=== PATIENT | male | born 1960 | race Two or more races ===

== ENCOUNTER 2025-02-11 08:59 | Outpatient (RCR) | payer MEDICARE, SELFPAY ==
--- NOTE | 2025-02-11 12:55 | CTCCONSULT_ITS ---
Patient: BRANDON MATHEWS : 1960 MR#: [id number] Page 2 of 4 CONSULTATION NOTE DATE OF CONSULTATION: 02/11/2025 NAME: BRANDON MATHEWS ACCOUNT: [id number] : 1960 AGE: 64 REFERRING PHYSICIAN: Irwin Espitia MD PRIMARY PHYSICIAN: REASON FOR VISIT: History of colon cancer ONCOLOGY HISTORY: DIAGNOSIS: Colon adenocarcinoma DATE OF DIAGNOSIS: 08/13/2020 STAGE/TNM: 3.2 cm ulcerated area adenocarcinoma status post AP resection proximal margin negative by 18 cm distal margin negative by 5 cm mesorectal margin negative by 1.5 cm 19 small benign lymph nodes identified tumor progression score 0 no visible cancer cells identified, TREATMENT HISTORY: Care?Plan Start?Date Cycle Day Intent Rectal adenocarcinoma s/p chemoradiation HISTORY OF PRESENT ILLNESS: 64-year-old male with a history of rectal adenocarcinoma. Patient underwent chemoradiation followed by surgery. Patient have colostomy bag and have hernia associated with it. Patient have not had a colonoscopy since his treatment. Patient have not had any follow-up with colorectal surgery. OTHER MEDICAL HISTORY/CONDITIONS: COLON CA DX 01/2020, HTN, ASTHMA, HYPERLIPIDIMIA, ABDOMINAL HERNIA COLOSTOMY 08/2020, RT EYE SURGERY @11YR OLD,LT ARM SURGERY @21 YRS OLD FAMILY HISTORY: Father:?DENIES Mother:?BR?CA?60YR Sibling:?SISTER?BR?CA?40YR Children:?DENIES Cancer?History:?COLON?CA SOCIAL HISTORY: Occupational?History:?DISABLED Education?Level:?Completed High School Marital?Status:? Tobacco?Use?Years:?10 Tobacco?Use:?1PACK?A?WEEK,?FORMER ETOH Use:?2 CANS A BEER X 3-4 WEEK X2 YRS, DOES NOT CURRENTLY DRINK Social History Note:?HOMELESS, LIVES WITH FRIEND MEDICATIONS: 1. busPIRone - 15 mg 1 tab Twice a Day 2. chlorthalidone - 50 mg 1 tab In the morning 3. clindamycin HCl - 300 mg Capsule As directed 4. furosemide - 40 mg 1 tab Twice a Day 5. gabapentin - 100 mg 1 Capsule Three times a day 6. potassium - 25 mEq 1 tab Daily 7. pravastatin - 40 mg 1 tab Daily 8. primidone - 50 mg 1 tab Daily 9. tamsulosin - 0.4 mg 1 Capsule Daily 10. traMADol - 50 mg 1 tab As directed 11. TylenoL - 650 mg 1 tab As directed Medications Last Reconciled by Vidya Joe MA on 02/11/2025 ALLERGIES: No Known Drug Allergies REVIEW OF SYSTEMS: A complete 14-point review of systems was performed and is negative except as noted in interval history. PHYSICAL EXAMINATION: VITAL SIGNS: Temperature?98, B/P?121/77, Height?70?inches, Oxygen?Saturation?95% Weight?198?lbs PAIN: 6 - Severe pain ECOG Performance Status: 3 - Symptomatic; limited self-care; spends >50% of time in bed, not bedridden GENERAL APPEARANCE: Appears disheveled .poorly kept HEENT: Normocephalic, no temporal wasting, normal conjunctiva, no scleral icterus, normal hearing, lips without lesions, neck normal range of motion. CARDIOVASCULAR: Not assessed. PULMONARY: Normal respiratory effort, no respiratory distress or use of accessory muscles, speaking in full sentences, no tachypnea. EXTREMITIES: No pedal edema or cyanosis. SKIN: Normal skin appearance. NEUROLOGIC: Alert and oriented x4. PSHYCHIATRIC: Appropriate affect, mood normal, behavior normal, intact thought and speech. Abdomen showed hernia at the site of colostomy bag almost a foot wall size LABORATORY DATA: I have personally reviewed and interpreted each of the patient?s relevant lab tests, abnormal findings are below: Date ASSESSMENT/PLAN: History of rectal adenocarcinoma Patient had chemoRT AP resection after the treatment and was found to have complete response with no viable cancer Here for continued T of care Will get CT scan Refer to general surgery for reversal of colostomy bag and hernia repair Colonoscopy ordered nida and [facility] ambulatory services representative RTC in 1 to 2 months ORDERS: Order # Description [id number] [facility] [id number] CT Scan + Chest + Abdomen and Pelvis + With W/O Contrast [id number] Follow Up 4 Week [id number] Vitamin B-12 + Folic Acid; Serum + Ferritin + Iron Panel [id number] RETURN TO CLINIC: I reviewed the diagnosis, prognosis, and recommended treatment/procedure options with the patient (and/or their legal packaging sales representative), including the potential benefits, risks, side effects and alternative therapies. We also discussed the option of no treatment and the possibility of clinical trial participation, if applicable. All questions were addressed, and they demonstrated understanding. They provided informed consent to proceed with the proposed plan of care. BILLING AND COMPLIANCE: I reviewed external records from providers outside my specialty as summarized above. I spent a total of 50 minutes on this patient?s care on the day of their visit excluding time spent related to any billed procedures. This time includes time spent with the patient as well as time spent documenting in the medical record, reviewing patients records and tests, obtaining history, placing orders, communicating with other healthcare professionals, counseling the patient, family or caregiver, and/or care coordination for the diagnoses above. Electronically Signed by: Mario Duque MD T: 12:53 PM CC: PCP: Referring: Irwin Espitia This document was completed utilizing speech recognition software. Grammatical errors, random word insertions, pronoun errors, and incomplete sentences are an occasional consequence of this system due to software limitations, ambient noise, and hardware issues. Any formal questions or concerns about the content, text or information contained within the body of this dictation should be directly addressed to the provider for clarification.
== END 2025-02-26 23:59 | disposition home or self-care (01) ==
LOC: SCTC 08:59
PROVIDERS: PCP Nurse Practitioner Family; Referring Provider Nurse Practitioner Family; Visit Provider Internal Medicine Hematology & Oncology
DX: Z08 Encounter for follow-up examination after completed treatment for malignant neoplasm (principal); Z85.048 Personal history of other malignant neoplasm of rectum, rectosigmoid junction, and anus
CPT/HCPCS: 99213; G0463

== ENCOUNTER → 2025-03-21 | Outpatient (CLI) | payer MEDICARE, SELFPAY ==
[2025-03-20 11:52] LABS: Alanine Aminotransferase 40 U/L (10-49); Albumin, Serum 4.2 gm/dL (3.4-4.8); Albumin/Globulin Ratio 2.0 (1.2-2.2); Alkaline Phosphatase 59 U/L (46-116); Anion Gap 9 (7-16); Aspartate Amino Transferase 32 U/L (0-34); BUN/Creatinine Ratio 13 Ratio (12-20); Bilirubin,Total 0.6 mg/dL (0.3-1.2); Blood Urea Nitrogen 10 mg/dL (9-23); Calcium 9.0 mg/dL (8.3-10.6); Calcium (Corrected) 9.0 mg/dL (8.5-10.1); Carbon Dioxide 30.1 mMol/L (20.0-31.0); Chloride 103 mMol/L (98-107); Creatinine (Component) 0.8 mg/dL (0.6-1.3); Globulin 2.1 gm/dL (2.3-3.5); Glucose 113 mg/dL (74-106); Osmolality,Calculated 283 (275-295); Potassium 3.9 mMol/L (3.4-5.1); Sodium 142 mMol/L (136-145); Total Protein 6.3 gm/dL (5.7-8.2); eGFR > 60 See Note
--- NOTE | 2025-03-21 15:00 | XR_ITS ---
Examination: CT chest with intravenous contrast CT abdomen with intravenous contrast CT pelvis with intravenous contrast CT chest without intravenous contrast CT abdomen without intravenous contrast CT pelvis without intravenous contrast 2-D sagittal reconstructions. 2-D coronal reconstructions. 3-D reconstructions. Date and time of exam: March 21, 2025, 1603 hours, no priors INDICATIONS: Diagnosis personal history of other malignant neoplasm of the rectum, rectosigmoid junction, anus, staging CTDI: vol (mGy): 14.4 DLP: (mGycm): 1213 Technique: Multiple 1.25 mm axial sections of the chest abdomen pelvis pre and post intravenous administration 60 cc Isovue-370 have been obtained. 2-D sagittal and coronal reconstructions have been obtained. 3-D reconstructions have been obtained. Low dose protocols were performed. One or more of the following dose reduction techniques were used; automated exposure control, adjustment of the mA and/or KV according to patient size, use of iterative reconstruction technique. Findings: No thoracic aortic aneurysmal dilatation No pulmonary artery filling defects No paratracheal or tracheobronchial or bronchopulmonary adenopathy 7 mm pulmonary nodule right midlung image 193 2 mm pulmonary nodule anterior segment right upper lobe image 210 No pneumonia or pulmonary edema No liver splenic lesion No gallstones No pancreatic mass Normal adrenal glands No renal or ureteral calculi, no hydronephrosis 6 mm left lateral para-aortic lymph node image 192 9 mm left common iliac lymph node axial image 235 7 mm right common iliac lymph node axial image 242 Bilateral subcentimeter external iliac lymph nodes, the largest on the left side 7 mm Left common femoral lymph node 10 mm No perirectal lymphadenopathy Mild presacral soft tissue density, axial image 285, measuring 9 mm in thickness Urinary bladder intact Fat-containing inguinal hernias Anterior pelvic wall defect containing colon no incarcerated bowel Moderate osteopenia IMPRESSION: Noncalcified pulmonary nodules as above, recommend 6-month follow-up CT chest without contrast Abdominal pelvic lymphadenopathy as above, consider PET CT scan follow-up
== END | disposition home or self-care (01) ==
LOC: SCAT 13:58
PROVIDERS: Referring Provider Internal Medicine Hematology & Oncology; Visit Provider Internal Medicine Hematology & Oncology
DX: R91.8 Other nonspecific abnormal finding of lung field (principal); R59.0 Localized enlarged lymph nodes; Z93.3 Colostomy status; Z85.048 Personal history of other malignant neoplasm of rectum, rectosigmoid junction, and anus; Z85.038 Personal history of other malignant neoplasm of large intestine
CPT/HCPCS: 36415; 71270; 74178; 80053; A4649; Q9967

== ENCOUNTER 2025-03-27 15:12 | Outpatient (RCR) | payer MEDICARE, SELFPAY ==
--- NOTE | 2025-04-09 23:07 | CTCFLWUP_ITS ---
Patient: BRANDON MATHEWS : 1960 Page 2 of 3 FOLLOW UP NOTE DATE OF SERVICE: 03/27/2025 NAME: BRANDON MATHEWS ACCOUNT: [id number] : 1960 AGE: 65 INTERVAL HISTORY: ONCOLOGY HISTORY:?[facility] Oncology Hx? DIAGNOSIS: Colon adenocarcinoma DATE OF DIAGNOSIS: 08/13/2020 STAGE/TNM: 3.2 cm ulcerated area adenocarcinoma status post AP resection proximal margin negative by 18 cm distal margin negative by 5 cm mesorectal margin negative by 1.5 cm 19 small benign lymph nodes identified tumor progression score 0 no visible cancer cells identified, TREATMENT HISTORY: Care?Plan Start?Date Cycle Day Intent HISTORY OF PRESENT ILLNESS: 65-year-old male with a history of rectal adenocarcinoma. Patient underwent chemoradiation followed by surgery. Patient have colostomy bag and have hernia associated with it. Patient have not had a colonoscopy since his treatment. Patient have not had any follow-up with colorectal surgery. OTHER MEDICAL HISTORY/CONDITIONS: COLON CA DX 01/2020, HTN, ASTHMA, HYPERLIPIDIMIA, ABDOMINAL HERNIA COLOSTOMY 08/2020, RT EYE SURGERY @11YR OLD,LT ARM SURGERY @21 YRS OLD FAMILY HISTORY: Father:?DENIES Mother:?BR?CA?60YR Sibling:?SISTER?BR?CA?40YR Children:?DENIES Cancer?History:?COLON?CA SOCIAL HISTORY: Occupational?History:?DISABLED Education?Level:?Completed High School Marital?Status:? Tobacco?Use?Years:?10 Tobacco?Use:?1PACK?A?WEEK,?FORMER ETOH Use:?2 CANS A BEER X 3-4 WEEK X2 YRS, DOES NOT CURRENTLY DRINK Social History Note:?HOMELESS, LIVES WITH FRIEND MEDICATIONS: 1. busPIRone - 15 mg 1 tab Twice a Day 2. chlorthalidone - 50 mg 1 tab In the morning 3. clindamycin HCl - 300 mg Capsule As directed 4. furosemide - 40 mg 1 tab Twice a Day 5. gabapentin - 100 mg 1 Capsule Three times a day 6. potassium - 25 mEq 1 tab Daily 7. pravastatin - 40 mg 1 tab Daily 8. primidone - 50 mg 1 tab Daily 9. tamsulosin - 0.4 mg 1 Capsule Daily 10. traMADol - 50 mg 1 tab As directed 11. TylenoL - 650 mg 1 tab As directed?Pal[facility]ra Meds? Medications Last Reconciled by Vidya Wilson MD on 03/27/2025 ALLERGIES: No Known Drug Allergies REVIEW OF SYSTEMS: A complete 14-point review of systems was performed and is negative except as noted in interval history. PHYSICAL EXAMINATION:?CloneBlock PE? VITAL SIGNS: Temperature?97.6, B/P?132/75, Oxygen?Saturation?97% Weight?200?lbs PAIN: 0 - No pain ECOG Performance Status: 2 - Symptomatic; ambulatory; capable of self-care; >50% of waking hrs. not in bed GENERAL APPEARANCE: Appears disheveled .poorly kept HEENT: Normocephalic, no temporal wasting, normal conjunctiva, no scleral icterus, normal hearing, lips without lesions, neck normal range of motion. CARDIOVASCULAR: Not assessed. PULMONARY: Normal respiratory effort, no respiratory distress or use of accessory muscles, speaking in full sentences, no tachypnea. EXTREMITIES: No pedal edema or cyanosis. SKIN: Normal skin appearance. NEUROLOGIC: Alert and oriented x4. PSHYCHIATRIC: Appropriate affect, mood normal, behavior normal, intact thought and speech. Abdomen showed hernia at the site of colostomy bag LABORATORY DATA: I have personally reviewed and interpreted each of the patient?s relevant lab tests, abnormal findings are below: Date 03/20/25 ??GLUCOSE,RANDOM?(mg/dL) 113?H ??BLOOD?UREA?NITROGEN?(mg/dL) 10 ??CREATININE?(mg/dL) 0.80 ??SODIUM?(mmol/L) 142 ??POTASSIUM?(mmol/L) 3.9 ??CHLORIDE?(mmol/L) 103 ??CrCl?(CandG)?(ml/min) 118.50 ??AST/SGOT?(Unit/L) 32 ??ALT/SGPT?(Unit/L) 40 ??ALKALINE?PHOSPHATASE?(Unit/L) 59 ??BILIRUBIN,?TOTAL?(mg/dL) 0.6 ??PROTEIN?TOTAL?(gm/dl) 6.3 ??ALBUMIN,?SERUM?(gm/dl) 4.2 ??GLOBULIN?(gm/dl) 2.1?L ??ALBUMIN/GLOBULIN?RATIO 2.0 ??CALCIUM,?SERUM?(mg/dL) 9.0 ??CALCIUM?SERUM?(CORRECTED)?(mg/dL) 9.0 ASSESSMENT/PLAN:?Ra Duque Assessment/Plan? History of rectal adenocarcinoma Patient had chemoRT AP resection after the treatment and was found to have complete response with no viable cancer Here for continued T of care Will get CT scan Refer to general surgery for reversal of colostomy bag and hernia repair Colonoscopy ordered naterra and [facility] school services officer RTC in 1 to 2 months ORDERS: Order # Description [id number] Comprehensive Metabolic Panel - 12 [id number] Comprehensive Metabolic Panel - 12 + Uric Acid, Serum + CEA [id number] MD Follow Up 4 Week [id number] PET/CT of Skull to mid-thigh for Restaging RETURN TO CLINIC: I reviewed the diagnosis, prognosis, and recommended treatment/procedure options with the patient (and/or their legal loss prevention representative), including the potential benefits, risks, side effects and alternative therapies. We also discussed the option of no treatment and the possibility of clinical trial participation, if applicable. All questions were addressed, and they demonstrated understanding. They provided informed consent to proceed with the proposed plan of care. BILLING AND COMPLIANCE: I reviewed external records from providers outside my specialty as summarized above. I spent a total of 50 minutes on this patient?s care on the day of their visit excluding time spent related to any billed procedures. This time includes time spent with the patient as well as time spent documenting in the medical record, reviewing patients records and tests, obtaining history, placing orders, communicating with other healthcare professionals, counseling the patient, family or caregiver, and/or care coordination for the diagnoses above. Electronically Signed by: Mario Duque MD T: 11:05 PM CC: PCP: Referring: Huber Garcia This document was completed utilizing speech recognition software. Grammatical errors, random word insertions, pronoun errors, and incomplete sentences are an occasional consequence of this system due to software limitations, ambient noise, and hardware issues. Any formal questions or concerns about the content, text or information contained within the body of this dictation should be directly addressed to the provider for clarification.
== END 2025-03-29 23:59 | disposition home or self-care (01) ==
LOC: SCTC 15:12
PROVIDERS: PCP Family Medicine; Referring Provider Family Medicine; Visit Provider Internal Medicine Hematology & Oncology
DX: Z08 Encounter for follow-up examination after completed treatment for malignant neoplasm (principal); Z85.048 Personal history of other malignant neoplasm of rectum, rectosigmoid junction, and anus; Z92.21 Personal history of antineoplastic chemotherapy; Z92.3 Personal history of irradiation; Z93.3 Colostomy status
CPT/HCPCS: 99212; G0463

== ENCOUNTER 2025-04-02 14:04 | Outpatient (RCR) | payer MEDICARE, SELFPAY | END 2025-04-28 23:59 | disposition home or self-care (01) | LOC: SCTC 14:04 | PROVIDERS: PCP Family Medicine; Referring Provider Family Medicine; Visit Provider Internal Medicine Hematology & Oncology | DX: Z85.048 Personal history of other malignant neoplasm of rectum, rectosigmoid junction, and anus (principal); Z92.3 Personal history of irradiation; Z92.21 Personal history of antineoplastic chemotherapy | CPT/HCPCS: 99424; 99425 ==

== ENCOUNTER → 2025-04-02 | Outpatient (CLI) | payer MEDICARE, SELFPAY ==
--- NOTE | 2025-04-02 16:12 | XR_ITS ---
Examination: Duplex scan of the lower extremity, unilateral left complete Date and time of exam: April 02, 2025, 1639 hours INDICATION: Left leg swelling and pain beginning 3 months ago Technique: Duplex scan of the extremity veins using B-mode/grayscale imaging and Doppler spectral analysis and color flow Attention is directed to internal echogenicity, compression and augmentation involving these veins, color flow assessment, spectral analysis Findings: Major deep venous structures in the extremity demonstrate normal course and caliber. There is no evidence of deep vein thrombosis. Normal color flow and spectral analysis Impression: Negative for DVT..
== END | disposition home or self-care (01) ==
PROVIDERS: PCP Nurse Practitioner Family; Referring Provider Internal Medicine Hematology & Oncology; Visit Provider Internal Medicine Hematology & Oncology
DX: M79.605 Pain in left leg (principal); Z85.038 Personal history of other malignant neoplasm of large intestine
CPT/HCPCS: 93971

== ENCOUNTER 2025-04-30 10:14 | Outpatient (RCR) | payer MEDICARE, SELFPAY ==
--- NOTE | 2025-04-30 11:25 | CTCFLWUP_ITS ---
Patient: BRANDON MATHEWS : 1960 Page 2 of 4 FOLLOW UP NOTE DATE OF SERVICE: 04/30/2025 NAME: BRANDON MATHEWS ACCOUNT: [id number] : 1960 AGE: 65 INTERVAL HISTORY: Patient is doing better . still have pain in her toes. He is trying to make appointment with her surgeon at [facility]. ONCOLOGY HISTORY: DIAGNOSIS: Rectal adenocarcinoma DATE OF DIAGNOSIS: 08/13/2020 STAGE/TNM: 3.2 cm ulcerated area adenocarcinoma status post AP resection proximal margin negative by 18 cm distal margin negative by 5 cm mesorectal margin negative by 1.5 cm 19 small benign lymph nodes identified tumor progression score 0 no visible cancer cells identified, TREATMENT HISTORY: Care?Plan Start?Date Cycle Day Intent HISTORY OF PRESENT ILLNESS: 65-year-old male with a history of rectal adenocarcinoma. Patient underwent chemoradiation followed by surgery. Patient have colostomy bag and have hernia associated with it. Patient have not had a colonoscopy since his treatment. Patient have not had any follow-up with colorectal surgery. OTHER MEDICAL HISTORY/CONDITIONS: COLON CA DX 01/2020, HTN, ASTHMA, HYPERLIPIDIMIA, ABDOMINAL HERNIA COLOSTOMY 08/2020, RT EYE SURGERY @11YR OLD,LT ARM SURGERY @21 YRS OLD FAMILY HISTORY: Father:?DENIES Mother:?BR?CA?60YR Sibling:?SISTER?BR?CA?40YR Children:?DENIES Cancer?History:?COLON?CA SOCIAL HISTORY: Occupational?History:?DISABLED Education?Level:?Completed High School Marital?Status:? Tobacco?Use?Years:?10 Tobacco?Use:?1PACK?A?WEEK,?FORMER ETOH Use:?2 CANS A BEER X 3-4 WEEK X2 YRS, DOES NOT CURRENTLY DRINK Social History Note:?HOMELESS, LIVES WITH FRIEND MEDICATIONS: 1. busPIRone - 15 mg 1 tab Twice a Day 2. chlorthalidone - 50 mg 1 tab In the morning 3. clindamycin HCl - 300 mg Capsule As directed 4. furosemide - 40 mg 1 tab Twice a Day 5. gabapentin - 100 mg 1 Capsule Three times a day 6. potassium - 25 mEq 1 tab Daily 7. pravastatin - 40 mg 1 tab Daily 8. primidone - 50 mg 1 tab Daily 9. tamsulosin - 0.4 mg 1 Capsule Daily 10. traMADol - 50 mg 1 tab As directed 11. TylenoL - 650 mg 1 tab As directed Medications Last Reconciled by Vidya Wilson MD on 03/27/2025 ALLERGIES: No Known Drug Allergies REVIEW OF SYSTEMS: A complete 14-point review of systems was performed and is negative except as noted in interval history. PHYSICAL EXAMINATION: VITAL SIGNS: PAIN: 6 - Severe pain ECOG Performance Status: 1 - Symptomatic; ambulatory; restricted in strenuous activity GENERAL APPEARANCE: Appears disheveled .poorly kept HEENT: Normocephalic, no temporal wasting, normal conjunctiva, no scleral icterus, normal hearing, lips without lesions, neck normal range of motion. CARDIOVASCULAR: Not assessed. PULMONARY: Normal respiratory effort, no respiratory distress or use of accessory muscles, speaking in full sentences, no tachypnea. EXTREMITIES: No pedal edema or cyanosis. SKIN: Normal skin appearance. NEUROLOGIC: Alert and oriented x4. PSHYCHIATRIC: Appropriate affect, mood normal, behavior normal, intact thought and speech. Abdomen showed hernia at the site of colostomy bag LABORATORY DATA: I have personally reviewed and interpreted each of the patient?s relevant lab tests, abnormal findings are below: Date 03/20/25 ??GLUCOSE,RANDOM?(mg/dL) 113?H ??BLOOD?UREA?NITROGEN?(mg/dL) 10 ??CREATININE?(mg/dL) 0.80 ??SODIUM?(mmol/L) 142 ??POTASSIUM?(mmol/L) 3.9 ??CHLORIDE?(mmol/L) 103 ??CrCl?(CandG)?(ml/min) 118.50 ??AST/SGOT?(Unit/L) 32 ??ALT/SGPT?(Unit/L) 40 ??ALKALINE?PHOSPHATASE?(Unit/L) 59 ??BILIRUBIN,?TOTAL?(mg/dL) 0.6 ??PROTEIN?TOTAL?(gm/dl) 6.3 ??ALBUMIN,?SERUM?(gm/dl) 4.2 ??GLOBULIN?(gm/dl) 2.1?L ??ALBUMIN/GLOBULIN?RATIO 2.0 ??CALCIUM,?SERUM?(mg/dL) 9.0 ??CALCIUM?SERUM?(CORRECTED)?(mg/dL) 9.0 ASSESSMENT/PLAN: History of rectal adenocarcinoma Patient had chemoRT AP resection after the treatment and was found to have complete response with no viable cancer Here for continued T of care Ct scna is negative Refer to general surgery at [facility] for reversal of colostomy bag and hernia repair Colonoscopy ordered natmikki and [facility] director financial services RTCin [address] scan ORDERS: Order # Description [id number] Comprehensive Metabolic Panel - 12 + CEA [id number] Follow Up [id number] Scan + Chest + Abdomen and Pelvis + With Contrast RETURN TO CLINIC: I reviewed the diagnosis, prognosis, and recommended treatment/procedure options with the patient (and/or their legal escrow representative), including the potential benefits, risks, side effects and alternative therapies. We also discussed the option of no treatment and the possibility of clinical trial participation, if applicable. All questions were addressed, and they demonstrated understanding. They provided informed consent to proceed with the proposed plan of care. BILLING AND COMPLIANCE: I reviewed external records from providers outside my specialty as summarized above. I spent a total of 50 minutes on this patient?s care on the day of their visit excluding time spent related to any billed procedures. This time includes time spent with the patient as well as time spent documenting in the medical record, reviewing patients records and tests, obtaining history, placing orders, communicating with other healthcare professionals, counseling the patient, family or caregiver, and/or care coordination for the diagnoses above. Electronically Signed by: Mario Duque MD T: 11:22 AM CC: PCP: Referring: Huber Garcia This document was completed utilizing speech recognition software. Grammatical errors, random word insertions, pronoun errors, and incomplete sentences are an occasional consequence of this system due to software limitations, ambient noise, and hardware issues. Any formal questions or concerns about the content, text or information contained within the body of this dictation should be directly addressed to the provider for clarification.
== END 2025-05-29 23:59 | disposition home or self-care (01) ==
LOC: SCTC 10:14
PROVIDERS: PCP Family Medicine; Referring Provider Family Medicine; Visit Provider Internal Medicine Hematology & Oncology
DX: Z08 Encounter for follow-up examination after completed treatment for malignant neoplasm (principal); Z85.048 Personal history of other malignant neoplasm of rectum, rectosigmoid junction, and anus
CPT/HCPCS: 99211; 99212; G0463

== ENCOUNTER 2025-05-26 11:11 | Emergency (ER) | payer MEDICARE, SELFPAY ==
[2025-05-26 12:32] VITALS: BP 156/89; PULSE 73; RESP 16; TEMP 36.6; O2SAT 98
[2025-05-26 12:33] VITALS: BMI 28.4
--- NOTE | 2025-05-26 12:37 | XR_ITS ---
Examination: Venous duplex lower extremity sonogram, bilateral. Date and time of exam: May 26, 2025, 1406 hours INDICATIONS: Bilateral leg swelling beginning 1 month ago Technique: Multiple sonographic images of the deep venous system have been obtained. B-mode/2-D grayscale imaging of vascular structures and Doppler spectral analysis (waveforms) and color performed Both legs are examined. Findings: Deep venous systems do not demonstrate abnormal echogenicity. All visualized deep veins exhibit compressibility. All visualized deep veins exhibit augmentation. Impression: Negative for deep vein thrombosis
--- NOTE | 2025-05-26 12:38 | PD.EDLOWEX ---
Lower Extremity Injury RME/HPI General Chief Complaint: Extremity Injury, Lower Stated Complaint: BURNING SENSATION TO BILATERAL TOES X1MO Time Seen by Provider: 05/26/25 11:43 Arrival date/time: 05/26/25 11:11 69-year-old male patient with significant history of congestive heart failure, came in for evaluation regarding bilateral lower leg swelling. This been ongoing for the last 1 month that is worsening bilateral lower leg swelling associated with burning severity moderate. Patient denies any redness. Denies any other complaints. Patient told me that he is taking water pill. No fever no shortness of breath no dyspnea on exertion. Denies any trauma to the legs. Related Data Allergies Allergy/AdvReac Type Severity Reaction Status Date / Time No Known Allergies Allergy Verified 05/26/25 11:17 Review of Systems Review of Systems Narrative Review of Systems: Review of system reviewed and within normal limits except mentioned in HPI ED Exam Narrative Physical exam: VITAL SIGNS: Reviewed. GENERAL APPEARANCE: Alert and interactive, follows commands, no acute distress, HEAD AND FACE: Non-traumatic. ENT: PERRL, pink conjunctivitis, eyelid no trauma, Mucous membrane moist. NECK: Supple, nontender, no nuchal rigidity. CHEST: No tenderness, no crepitus, no paradoxical movement, no retractions. LUNGS: Clear, well ventilated, symmetric, no rales, no wheezing, no ronchi, no stridor, good breath sounds bilaterally. HEART: Regular rate, regular rhythm, no murmur, no gallops. ABDOMEN: Soft, positive bowel sounds, nondistended, no guarding, nontender, no rebound, no masses, RECTAL: Deferred. GENITAL: Deferred. NEUROLOGICAL: Gross motor function intact sensory function intact, Appropriate for age. MUSCULOSKELETAL: low back nontender, full range of motion. EXTREMITIES: Bilateral lower extremity +2 edema, no redness pulses palpable, no redness with tenderness on the foot, no cyanosis, full range of motion. SKIN: Color pink, dry, no rash, no lacerations, no abrasions, no contusions. LYMPHATICS: Deferred. Course Quality Measures none Orders Category Date Time Status US venous doppler LE BI Stat Exams 05/26/25 12:37 Completed Furosemide [Lasix] Med 05/26/25 17:09 Once 40 mg PO X1 ONE Ketorolac Inj [Toradol Inj] Med 05/26/25 12:38 Discontinued 30 mg IM X1 ONE Vital Signs Vital signs: Vital Signs Temperature 97.9 F 05/26/25 12:32 Pulse Rate 73 05/26/25 12:32 Respiratory Rate 16 05/26/25 12:32 Blood Pressure 156/89 H 05/26/25 12:32 Pulse Oximetry (%) 98 05/26/25 12:32 Oxygen Delivery Method Room Air 05/26/25 12:32 Extremity Injury, Lower MDM Narrative MDM Narrative:: 69-year-old male patient with significant history of congestive heart failure, came in for evaluation regarding bilateral lower leg swelling. This been ongoing for the last 1 month that is worsening bilateral lower leg swelling associated with burning severity moderate. Patient denies any redness. Denies any other complaints. Patient told me that he is taking water pill. No fever no shortness of breath no dyspnea on exertion. Denies any trauma to the legs. Ultrasound of bilateral lower extremity came back with no DVT. Patient was given Lasix in the ED. Patient was advised to elevate legs and wear compression stocking the morning and remove it during the night. Patient was advised to continue taking water pill. Patient data External records reviewed:: None Clinical information provided by:: patient Social determinants that could affect healthcare access:: none Patient has the following chronic illnesses:: History of bilateral lower leg swelling How is presenting disease/condition affected by chronic disease/condition?: exacerbated by Evaluation data The following diagnostics were reviewed and interpreted by me:: radiology exam(s) Lab and/or radiology exams considered but not ordered:: None Interpretation Summary: See above Medications / Prescriptions Medications or Prescriptions considered but not ordered:: None Medication administrations:: Medication Administration History Furosemide (Furosemide 40 Mg Tablet) 40 mg PO X1 ONE Stop: 05/26/25 17:10 Discontinued Medications Ketorolac Tromethamine (Ketorolac Inj 30 Mg/Ml Vial) 30 mg IM X1 ONE Stop: 05/26/25 12:39 Last Admin: 05/26/25 12:58 Dose: 30 mg Documented By: See above Consultations Consultation(s) initiated? (list below): No Diagnosis Extremity Injury, Lower Differential Diagnosis: other (Lower extremity swelling, DVT lower extremity , lymphedema) Most likely diagnosis given after review of the tests above:: Lower extremity swelling Admission Indicated Admission indicated?: not indicated Admission Request Was there a request for admission?: No Disposition Plan Disposition Plan: Discharge Discharge Attestation Discharge Attestation: The patient was given an opportunity to ask questions and understood the discharge instructions. Discharge instructions specifically effects, indications for sooner follow up or return to the emergency department, and the expected course of current diagnosis. Patient condition: Stable Discharge Plan Plan Patient Disposition: HOME (Self Care) Discharge Disposition comment: Stable Prescriptions/Referrals Referrals: Irwin Espitia FNP [Primary Care Provider] - In 1 week Problem List Clinical Impression: Swelling of lower extremity Patient/Caregiver Discharge Instructions Discharge Activity: activity as tolerated Education Materials: ED Leg Swelling in Both Legs Additional Instructions: Thank you for the opportunity for serving you today. You are stable for discharged . You are advised to: Follow-up with your PCP in 1 to 2 days Return to ED for worsening of symptoms Elevate your legs as needed Wear compression stocking as needed. In the morning remove it during the night Continue taking your water pills. Print Language: Setswana Stand Alone Forms: Nisreen Award Info., Patient Portal Info Letter DENTON/BOBO Supervising Physician ABDIEL Supervising Physician: MD Marko
[2025-05-26] MEDS: KETOROLAC INJ 30 MG/ML VIAL IM (12:58)
--- NOTE | 2025-05-26 15:49 | PRELIM_ITS ---
Bilateral lower extremity venous Doppler ultrasound. May 26, 2025 1406 hours Clinical history: Bilateral lower leg swelling, rule out deep vein thrombosis. Technique: Duplex scan of the bilateral lower extremity deep venous systems was performed utilizing 2D grayscale imaging, Doppler spectral analysis and color flow Doppler and with compression. Comparison: Compared with the prior study dated April 02, 2025. Findings: Michaud scale, color flow and spectral Doppler evaluation of the lower extremity deep veins was performed. Right: The common femoral, superficial femoral and popliteal veins are patent and compressible. The great saphenous vein is patent at the level of the saphenofemoral junction. The posterior tibial and peroneal veins are patent to the extent visualized. Normal respiratory variation and augmentation are noted. There is no evidence of occlusive or nonocclusive thrombus. There is soft tissue edema in the lower extremity. Left: The common femoral, superficial femoral and popliteal veins are patent and compressible. The great saphenous vein is patent at the level of the saphenofemoral junction. The posterior tibial and peroneal veins are patent to the extent visualized. Normal respiratory variation and augmentation are noted. There is no evidence of occlusive or nonocclusive thrombus. There is soft tissue edema in the lower extremity. Impression: No sonographic evidence of deep venous thrombosis in both lower extremities. Soft tissue edema in both lower extremities. Report Electronically Signed By: Nikita Prabhakar 05/26/2025 3:48:42 PM [EST]
[2025-05-26 17:52] VITALS: BP 156/89; PULSE 73
== END 2025-05-26 17:55 | disposition home or self-care (01) ==
PROVIDERS: Emergency Provider Nurse Practitioner Family; PCP Nurse Practitioner Family
DX: M79.89 Other specified soft tissue disorders (principal)
CPT/HCPCS: 93970; 96372; 99283; J1885; A9270